=== PATIENT | male | born 1990 | race Caucasian/White ===

== ENCOUNTER 2018-07-16 19:09 | Emergency (ER) | payer SELFPAY ==
[~2018-07-16 19:09] MED LIST: ALBU8.5H3 IH
== END 2018-07-16 20:00 | disposition left against medical advice (07) ==
LOC: EMS 19:10
DX: L29.9 Pruritus, unspecified (principal); Z53.21 Procedure and treatment not carried out due to patient leaving prior to being seen by health care provider